=== PATIENT | female | born 1965 | race Caucasian/White ===

== ENCOUNTER 2019-03-27 09:24 | Observation (INO) | payer BC ==
--- OUTSIDE RECORDS SUMMARY | 2019-03-27 10:47 | XMS REPORT ---
:1965 Author Organization eClinicalWorks Care Team Providers Name Role Phone Taran Berg Provider Role Unavailable Allergies No Known Allergies Problems Problem Type Condition Code Onset Dates Condition Status Problem Tear of right rotator cuff, M75.101 Active unspecified tear extent Medications No Known Medications Results No Known Results Summary Purpose eClinicalWorks Submission
--- OUTSIDE RECORDS SUMMARY | 2019-03-27 10:47 | XMS REPORT ---
:1965 Author Organization eClinicalWorks Care Team Providers Name Role Phone Taran Berg Provider Role Unavailable Allergies, Adverse Reactions, Alerts Substance Reaction Event Type Ultram Info Not Available Drug Allergy Problems Problem Type Condition Code Onset Dates Condition Status Assessment Acute pain of right shoulder M25.511 Active Problem Tear of right rotator cuff, M75.101 Active unspecified tear extent Assessment Subacromial bursitis of right M75.51 Active shoulder joint Assessment Tear of right rotator cuff, M75.101 Active unspecified tear extent Medications No Known Medications Results Name Result Date Reference Range Unit Abnormality Flag MRI SHOULDER WO CONTRAST Summary Purpose eClinicalWorks Submission
--- OUTSIDE RECORDS SUMMARY | 2019-03-27 10:47 | XMS REPORT ---
[...] cuff, M75.101 Active unspecified tear extent Assessment Bicipital tendinitis of right M75.21 Active shoulder Assessment Subacromial bursitis of right M75.51 Active shoulder joint Assessment Tear of right rotator cuff, M75.101 Active unspecified tear extent Medications Medication Code System Code Instructions Start Date End Date Status Dosage [facility] [id number] 7.5 MG Orally Jun 14, Jul 22, Active 1 tablet Once a day 2017 2017 Results No Known Results Summary Purpose eClinicalWorks Submission
--- OUTSIDE RECORDS SUMMARY | 2019-03-27 10:48 | XMS REPORT ---
:1965 Author Organization eClinicalWorks Care Team Providers Name Role Phone Taran Berg Provider Role Unavailable Allergies, Adverse Reactions, Alerts Substance Reaction Event Type Ultram Info Not Available Drug Allergy Problems Problem Type Condition Code Onset Dates Condition Status Assessment Tear of right rotator cuff, M75.101 Active unspecified tear extent Problem Tear of right rotator cuff, M75.101 Active unspecified tear extent Assessment Acute pain of right shoulder M25.511 Active Assessment Subacromial bursitis of right M75.51 Active shoulder joint Assessment Bicipital tendinitis of right M75.21 Active shoulder Medications Medication Code System Code Instructions Start Date End Date Status Dosage [facility] [id number] 7.5 MG Orally Active 1 tablet Once a day Results No Known Results Summary Purpose eClinicalWorks Submission
--- OUTSIDE RECORDS SUMMARY | 2019-03-27 10:48 | XMS REPORT ---
[...] Instructions Start Date End Date Status Dosage [facility] [id number] 7.5 MG Orally Aug 03, Oct 02, Active 1 tablet Once a day 2017 2017 Results No Known Results Summary Purpose eClinicalWorks Submission
[2019-03-27 11:07] VITALS: BMI 27.4
--- NOTE | 2019-03-27 11:37 | P.SSS ---
Patient History Date of Service: 03/27/19 Reason for admission: L SIDE LATERAL CHEST WALL AND BACK PAIN History of Present Illness: TIMO IS 53 YEARS OLD LADY WITH NO MAJOR CARDIAC RISK FACTORS COMES WITH PAIN L LATERAL CHEST WALL, RADIATING TO L SIDE T8 SPINE REGION. SHE WOKE UP WITH PAIN. SHE HAS FEVER BLISTER R LIP ALSO. SHE HAS SOME FATIGUE. SHE HAS NO NAUSEA, GERD, DIAPHORSIS OR DYSPNEA. Allergies tramadol HCl [From [facility]] Allergy (Verified 02/21/16 06:44) Itching Hydrocodone-Acetaminophen Adverse Reaction (Uncoded 02/21/16 06:44) Nausea/Vomiting Home Medications: Atorvastatin Calcium [Lipitor] 10 mg PO DAILY 03/27/19 Cholecalciferol (Vitamin D3) [Vitamin D3] 1,000 unit PO DAILY 03/27/19 Glucosamine/Chondroiti/Hrb#270 [Cosamin Asu Capsule] 1 each PO DAILY 03/27/19 Multivit-Min/Iron Fum/Folic AC [Pfxdk-Ziuofsk-Gtrbyloq Tablet] 1 each PO DAILY 03/27/19 Ubidecarenone [Co Q-10] 100 mg PO DAILY 03/27/19 - Past Medical/Surgical History Has patient received pneumonia vaccine in the past: No Diabetic: No -: Coronary Artery spasms -: Hyperlipidemia -: 3 -: hysterectomy -: c-spine fusion 6,7 -: tondon repair -: tonsillectomy - Family History Father History Unknown: Yes Mother -: Lung disease, Diabetes, Other (see notes) Notes: pulmonary embolism - Social History Smoking Status: Never smoker Alcohol use: Yes CD- Drugs: No Caffeine use: No Place of Residence: Home Review of Systems 10-point ROS is otherwise unremarkable Physical Examination - Physical Exam General: Alert, In no apparent distress HEENT: Atraumatic, PERRLA, Mucous membr. moist/pink, EOMI, Sclerae nonicteric Neck: Supple, 2+ carotid pulse no bruit, No LAD, Without JVD or thyroid abnormality Respiratory: Clear to auscultation bilaterally, Normal air movement Cardiovascular: Regular rate/rhythm, Normal S1 S2 Gastrointestinal: Normal bowel sounds, No tenderness Musculoskeletal: No tenderness Integumentary: No rashes Neurological: Normal gait, Normal speech, Normal strength at 5/5 x4 extr, Normal tone, Normal affect Lymphatics: No axilla or inguinal lymphadenopathy - Diagnosis (Problem(s)) (1) Atypical chest pain Current Visit: Yes Status: Acute Plan: SHE HAS DERMATOMAL CHEST PAIN. I HAVE SEEN THIS IN PATIENTS TWO WEEKS BEFORE THEY GET SHINGLES BREAKOUT. I WILL COVER WITH GABAPENTIN AND VALTREX. SHE HAS FAMVIR AT HOME FOR HERPES LABIALIS. SHE IS VERY STABLE, HAS NORMAL EKG AND NORMAL ENZYMES. I WILL SEND HER HOME AFTER MEDS. IT WILL BE NICE IF DR. HICKMAN IS ABLE TO SEE HER SHE WAS SENT FROM [facility] TO THIS [facility]. - Disposition Disposition: ROUTINE DISCHARGE
--- NOTE | 2019-03-27 13:15 | RAD REPORT ---
EXAM DESCRIPTION: CT - Chest For Pe Angio - 03/27/2019 1:04 pm CLINICAL HISTORY: Chest pain. rule out PE COMPARISON: No comparisons TECHNIQUE: CT angiogram of the pulmonary arteries was performed with MIP. All CT scans are performed using dose optimization technique as appropriate and may include automated exposure control or mA/KV adjustment according to patient size. FINDINGS: No evidence of pulmonary thromboembolism. No acute aortic finding demonstrated. Mild interstitial pulmonary edema suspected. No significant pericardial or pleural fluid. No concerning bony finding. IMPRESSION: No evidence of pulmonary thromboembolism. Mild interstitial pulmonary edema.
[2019-03-27] MEDS: GABAPENTIN 100 MG CAP PO SCH ×2 (14:10→20:58)
[2019-03-27] MEDS: VALACYCLOVIR 500 MG TAB PO SCH ×2 (14:10→20:57)
--- NOTE | 2019-03-27 17:20 | CON ---
History Of Present Illness: Mrs. Brown is 53. She had chest pain. It was left side of her chest, back, and front, did not seem to radiate, and exactly a dermatome band that perhaps close enough to i t. There is no rash. The pain is not pleuritic. It is constant, although it seems to have gone sujit y. She has no previous history of cardiac disease. She had what was thought to be an DE, but had no rmal coronary arteries in 2012. We speculated it could have been due to coronary spasm. There is no history of vascular disease or diabetes or tobacco use. Medications: She takes atorvastatin, multivitamin, coenzyme Q10, vitamin D3, and glucosamine chondro itin. Allergies: SHE IS INTOLERANT OF TRAMADOL AND HYDROCODONE. Physical Examination: General: Alert, oriented, pleasant, 5 feet 3 pounds, 155 pounds. HEENT: Normal. Lungs: Clear. Cardiac: Within normal limits. Abdomen: Soft. Extremities: Normal. No cyanosis, clubbing, or edema. Distal pulses palpable. Studies: EKG voltage for LVH, otherwise normal. Impression: This is probably not an acute coronary syndrome. Troponins were less than 0.017 at [facility], so we will now proceed to do a stress test and echocardiogram tomorrow. If those are normal, she can be discharged home. Dr. Garnica has elected to give her valacyclovir thinking it may h ave been shingles. MEGAN/TONIL Voice ID: [id number] Report ID: [id number]
[2019-03-27] MEDS ORDERED: ATORVASTATIN 10 MG TAB PO SCH (21:00)
[2019-03-28 08:19] VITALS: TEMP 97.3
[2019-03-28] MEDS: GABAPENTIN 100 MG CAP PO SCH ×2 (08:26→17:02)
[2019-03-28] MEDS: VALACYCLOVIR 500 MG TAB PO SCH ×2 (08:26→17:02)
[2019-03-28] MEDS ORDERED: REGADENOSON 0.4 MG/5 ML SYR IV ONE (08:37)
[2019-03-28] MEDS ORDERED: VITAMIN D 1000 UNIT TAB PO SCH (09:00)
[2019-03-28] MEDS ORDERED: HOME MED 1 EA UNK (Ubidecarenone [Co Q-10] 100 MG) PO SCH (09:00)
[2019-03-28] MEDS ORDERED: HOME MED 1 EA UNK (Cholecalciferol (Vitamin D3) [Vitamin D3] 1,000 UNIT) PO SCH (09:00)
[2019-03-28 10:18] VITALS: O2SAT 95
[2019-03-28 12:41] VITALS: BP 130/61
--- NOTE | 2019-03-28 13:08 | ECHO ---
HEIGHT: 5 ft 3 in WEIGHT: 155 lb 2 oz DATE OF STUDY: 03/28/[address]: Calvin Cifuentes MD 2-DIMENSIONAL: YES M.MODE: YES DOPPLER: YES COLOR FLOW: YES TDS: NO PORTABLE: NO DEFINITY: NO BUBBLE STUDY: NO DIAGNOSIS: CHEST PAIN CARDIAC HISTORY: CATHERIZATION: YES SURGERY: NO PROSTHETIC VALVE: NO PACEMAKER: NO MEASUREMENTS (cm) DIASTOLIC (NORMALS) SYSTOLIC (NORMALS) IVSd 0.9 (0.6-1.2) LA Diam 3.5 (1.9-4.0) LVEF 72% LVIDd 3.7 (3.5-5.7) LVIDs 2.2 (2.0-3.5) %FS 41% LVPWd 1.0 (0.6-1.2) Ao Diam 2.4 (2.0-3.7) 2 DIMENSIONAL ASSESSMENT: RIGHT ATRIUM: NORMAL LEFT ATRIUM: NORMAL RIGHT VENTRICLE: NORMAL LEFT VENTRICLE: NORMAL TRICUSPID VALVE: NORMAL MITRAL VALVE: NORMAL PULMONIC VALVE: NORMAL AORTIC VALVE: NORMAL PERICARDIAL EFFUSION: NONE AORTIC ROOT: NORMAL LEFT VENTRICULAR WALL MOTION: NORMAL. DOPPLER/COLOR FLOW: NORMAL. COMMENTS: NORMAL 2D ECHOCARDIOGRAM WITH DOPPLER. TECHNOLOGIST: JORGITO JONES
--- NOTE | 2019-03-28 16:35 | TREADPHA ---
DX: CHEST PAIN Date of Study: 03/28/19 Ht: 5 3 Wt: 155 lb 2 oz Consulting Physician: MARYLOU MEDICATIONS: LIPITOR, NEURONTIN, VALTREX. HISTORY: 53 YEAR FEMALE, NON-SMOKER. HISTORY: HYPERLIPIDEMIA PHYSICIAL EXAMINATION: RESTING B.P.: 130/81 RESTING H.R.: 72 RESTING EKG: NORMAL PROTOCOL: LEXISCAN EXERCISE TIME: 3:30 B.P. AT PEAK STRESS: 135/76 IMPRESSION: LEXISCAN INJECTED FOLLOWED BY CARDIOLITE PER PROTOCOL, SEE NUCLEAR MEDICINE REPORT. NO SUPRAVENTRICULAR TACHYCARDIA, VENTRICULAR TACHYCARDIA, PREMATURE ATRIAL COMPLEXS, OR PREMATURE VENTRICULAR COMPLEXS. PATIENT REPORTED 0/10 CHEST PAIN. NON-DIAGNOSTIC ELECTROCARDIOGRAM WITH LEXISCAN STRESS.
--- NOTE | 2019-03-28 16:55 | RAD REPORT ---
EXAM DESCRIPTION: NM - Rest Stress Cardiac Imaging - 03/28/2019 4:40 pm CLINICAL HISTORY: Chest pain. COMPARISON: None. TECHNIQUE: The patient was administered approximately 10mCi of Tc 99m Sestamibi prior to resting SPE CT imaging of the heart. The patient was then administered approximately 30 mCi of Tc 99m Sestamibi f ollowing exercise or pharmacologic stress. Multiplanar SPECT images were reviewed. FINDINGS: There is uniformity of radiotracer uptake involving the entire left ventricular myocardiu m on rest and stress images. The left ventricular ejection fraction equals 69% IMPRESSION: Negative for a myocardial perfusion defect
== END 2019-03-28 19:00 | disposition home or self-care (01) ==
LOC: 2ND 10:45
PROVIDERS: ADMIT Internal Medicine; ATTEND Internal Medicine
DX: R07.89 Other chest pain (principal); J81.1 Chronic pulmonary edema; E78.5 Hyperlipidemia, unspecified; Z79.899 Other long term (current) drug therapy
CPT/HCPCS: 71275; 78452; 93017; 93306; A9500; G0378; J2785; Q9967

== ENCOUNTER 2019-08-18 06:25 | Day surgery (SDC) | payer BC ==
[2019-08-15 09:22] LABS: Absolute Lymphocytes (CBC) 2.3 K/uL (0.7-4.9); Basophils % 0.6 % (0-1.3); Hematocrit 37.2 % (36.0-45.0); Lymphocytes % 38.7 % (15.3-44.8); MPV 8.2 fL (7.6-11.3); RBC Red Blood Cell Count 3.92 M/uL (3.86-4.86)
[2019-08-15 09:24] LABS: Potassium 4.2 mmol/L (3.5-5.1); Protime INR 0.9
--- NOTE | 2019-08-15 09:40 | EKG ---
Test Date: 2019-08-15 Test Time: 08:41:26 Recycling Operator: EDMAR MEASUREMENT RESULTS: Intervals: Rate: 72 MA: 148 QRSD: 82 QT: 396 QTc: 433 [place]: P: 17 MA: 148 QRS: 53 T: 49 INTERPRETIVE STATEMENTS: Normal sinus rhythm Normal ECG Compared to ECG 01/29/2017 15:18:20 No significant changes Electronically Signed On 08-15-19 09:40:19 CDT by Calvin Cifuentes
--- NOTE | 2019-08-15 10:41 | RAD REPORT ---
EXAM DESCRIPTION: RAD - Chest Pa And Lat (2 Views) - 08/15/2019 8:48 am CLINICAL HISTORY: preop Chest pain. COMPARISON: Chest Single View dated 01/29/2017; CHEST PA AND LAT 2 VIEW dated 10/17/2015; CHEST SINGLE VIEW dated 03/11/2015; CHEST SINGLE VIEW dated 08/13/2014 FINDINGS: The lungs are clear. The heart is normal in size. No displaced fractures. Cervical spine hardware plate. IMPRESSION: No acute or concerning finding suspected.
--- NOTE | 2019-08-16 13:49 | PREOPHP ---
Date of Admission: 08/15/2019 Pt was seen in my office for new STM in plantar fascia left foot present months. Patient pain is dull, Mild in severity. Worse with activity relieved by rest Past Medical History: Arthritis and thyroid disease. Current Medications: Atorvastatin, coenzyme Q, Cosamin ASU 500 mg. Allergies: ULTRAM. Past Surgical History: ; hysterectomy; unilateral oophorectomy; repair of quadriceps tendon; cervical fusion; and plantar fibroma excision in 2016, left foot. Social History: Patient is a former smoker. Admits to occasional wine use. No IV drug use. Family History: High cholesterol in her mother and father, arthritis, diabetes , hypertension, thyroid disease in the mother. Physical Examination: Vital Signs: Weight 155 pounds, height 5 feet 3 inches. General Appearance: Healthy, well developed, well nourished, well oriented x3. Vascular: Evaluation reveals dorsalis pedis and posterior tibial pulses to be full bilaterally. Capillary refill time is 1 seconds. Temperature gradient is within normal limits. There are no varicosities or the signs of DVT noted bilaterally. Musculoskeletal: Subcutaneous soft tissue mass located on the plantar fascia of the left foot. There is swelling of the skin measuring 1.5 cm x 1 cm, just medial to the prior incision for previous growth. The growth at preop is now 1.5 cm x 1.5 cm medial to the prior incision with possibly new growths on the lateral aspect of the prior incision measuring approximately 5 mm x 5 mm and 6 mm x 7 mm. There are no skin changes seen. Lateral lesions may be just a scar tissue from the prior procedure. Skin: No rash, ulcer, tumor, or contracture in noted in the skin. Neurologic: Deep tendon reflexes of the patella and Achilles to be 5/5 bilaterally. Vibratory and sharp dull sensation within normal limits. Diagnoses: Benign soft tissue mass of the left arch, plantar fibroma. The recommended treatment is for incisional biopsy of these areas in a plantar fashion. Due to the new growth of these areas, biopsy is warranted. The patient as stated she will be nonweightbearing for approximately 2-3 weeks with use of crutches and pressure on her heel in a non-walking nature. Patient understands risks, benefits, alternatives of the above-mentioned procedure including, but not limited to the risk of pain, swelling, numbness, stiffness, infection, nonhealing of skin or soft tissue, and recurrence of the growths or new growths. Patient has been instructed on use of cold therapy machine, given written instructions. Lab work has been performed and is within normal limits. Medical H and P will be completed by Anesthesia. The patient is scheduled for surgery at [facility] on August 18, 2019. VINH Voice ID: [id number] MTDD
[2019-08-18] MEDS ORDERED: Ringers Lactate 1,000 ML IV ONE (06:47)
[2019-08-18] MEDS ORDERED: CEFAZOLIN/SWI 1gm 1 GM/10 ML SYR ONE (06:48)
[2019-08-18] MEDS ORDERED: PROPOFOL 200 MG/20 ML VIAL IV ONE ×2 (07:11→08:00)
[2019-08-18] MEDS ORDERED: MIDAZOLAM HCL 2 MG/2 ML INJ ONE (07:11)
[2019-08-18] MEDS ORDERED: LIDOCAINE 2% MPF 5 ML VIAL ONE (07:12)
[2019-08-18] MEDS ORDERED: FENTANYL CITR 100 MCG/2 ML ONE (07:12)
[2019-08-18] MEDS ORDERED: ONDANSETRON 4 MG/2 ML VIAL ONE (07:13)
[2019-08-18] MEDS ORDERED: LIDOCAINE 1% MPF 30 ML VIAL ONE (07:23)
[2019-08-18] MEDS ORDERED: dexAMETHasone 10 MG/ML VIAL ONE (07:58)
[2019-08-18] MEDS ORDERED: KETOROLAC 30 MG/ML INJ ONE (07:58)
[2019-08-18 09:36] VITALS: TEMP 97; O2SAT 96
[2019-08-18 10:12] VITALS: BP 128/72
--- NOTE | 2019-08-18 19:18 | DS ---
Date of Discharge: 08/18/2019 Date Of Surgery: 08/18/2019 Preoperative Diagnosis: Plantar fibroma, left foot. Postoperative Diagnosis: Plantar fibroma, left foot. Procedure: Excision of plantar fibroma, plantar aspect, left foot. Hospital Course: The patient tolerated the sedation and anesthesia well. The patient will be discha rged to home in satisfactory condition, nonweightbearing on the left foot utilizing crutches. The carmen henry has emergency phone number and postop instructions in the written form. The patient will be se en in my office for postoperative care in 1 week on 08/25/2019 at 9 o'clock. ANGELA/ERIC Voice ID: [id number] Report ID: [id number]
--- NOTE | 2019-08-18 19:18 | OP ---
Date of Procedure: 08/18/2019 Surgeon: Antony Ayala DPM Preoperative Diagnosis: Plantar fibroma, left foot. Postoperative Diagnosis: Plantar fibroma, left foot. Procedure: Excision of plantar fibroma. Soft tissue mass for biopsy. Anesthesia: Initially sedation, converted to general. Description Of Procedure: Patient was brought into the operating room, placed on operative table in supine position. Once adequate IV sedation was obtained, the patient was injected with a total of 10 cc of 0.5% Marcaine plain. The patient was prepped and draped in the usual sterile manner, and the left extremity was elevated and an Esmarch bandage was applied to exsanguinate the blood supply. Pne umatic ankle tourniquet was elevated to 250 mmHg and the Esmarch was removed. Attention was then dir ected to the plantar aspect of the left foot where a 6 cm curvilinear incision was made overlying the plantar fibroma extending onto a second area of question. The patient was still moving in with an a dditional 10 cc of Marcaine injected. The patient still had discomfort and was converted to general. The incision was deepened via sharp and blunt dissection, preserving a fat layer on the skin, but s eparating the fibromatous mass from the skin and subcutaneous fat. The plantar fibroma was easily se en in the plantar fascia. The dimensions were approximately 1.6 cm in diameter. The margins were is olated of good plantar fascia. There was some scarring from the previous excision just laterally to this area, but not connected. An incision was made in the plantar fascia in the normal area in the c entral band and extended medially and exiting the edge of the medial plantar fascia band, a cut was t hen made at the proximal aspect of the growth in the good plantar fascia and the fibromatous mass was then reflected distally and excised at its distal-most margin where good plantar fascia was seen. T he medial margin was into the fatty tissue. The lateral margin was isolated. The area of a second g rowth was looked at. It was found to be a scar tissue, but removed as there was muscle belly mediall y beneath this indicating no more plantar fascia or fibromatous mass in the second area just essentia l and lateral to the medial growth. There was flushed copious amounts of sterile saline. Neurologic structures were avoided. All bleeders were clamped and bovied. The subcutaneous tissue was reappro ximated utilizing 2-0 Vicryl suture. Skin was reapproximated utilizing 4-0 Prolene in a simple sutur ing. Excellent coaptation of the skin margins was obtained. They were dressed with Adaptic, dry maggie rile gauze, dry sterile Kerlix, and cold therapy pad and Arslan bandage. Pneumatic ankle tourniquet was deflated and capillary return was seen to be instantaneous to all digits. The patient was seen in m y office for postoperative care. The patient was discharged to recovery room in satisfactory conditi on. ANGELA/ERIC Voice ID: [id number] Report ID: [id number]
--- OUTSIDE RECORDS SUMMARY | 2019-09-17 15:11 | XMS REPORT ---
[...] Instructions Start Date End Date Status Dosage [facility] [id number] 7.5 MG Orally Active 1 tablet Once a day Results No Known Results Summary Purpose eClinicalWorks Submission
--- OUTSIDE RECORDS SUMMARY | 2019-09-17 15:11 | XMS REPORT ---
[...] Instructions Start Date End Date Status Dosage [facility] 34167125701 7.5 MG Orally Aug 03, Oct 02, Active 1 tablet Once a day 2017 2017 Results No Known Results Summary Purpose eClinicalWorks Submission
--- OUTSIDE RECORDS SUMMARY | 2019-09-17 15:11 | XMS REPORT ---
[...] Instructions Start Date End Date Status Dosage [facility] 22318071650 7.5 MG Orally Jun 14, Jul 22, Active 1 tablet Once a day 2017 2017 Results No Known Results Summary Purpose eClinicalWorks Submission
== END 2019-08-18 10:10 | disposition home or self-care (01) ==
LOC: OR 06:25
PROVIDERS: ATTEND Podiatrist
PROC: 0JBR0ZZ Excision of Left Foot Subcutaneous Tissue and Fascia, Open Approach (ICD-10-PCS; principal; 2019-08-18 07:30)
DX: D17.39 Benign lipomatous neoplasm of skin and subcutaneous tissue of other sites (principal); M19.90 Unspecified osteoarthritis, unspecified site; E07.9 Disorder of thyroid, unspecified; Z88.6 Allergy status to analgesic agent; Z87.891 Personal history of nicotine dependence; Z83.3 Family history of diabetes mellitus; Z82.49 Family history of ischemic heart disease and other diseases of the circulatory system
CPT/HCPCS: 93005; 85025; 80048; 36415; 85610; 88305; 85730; 71046; 28039; J2704 ×2; J2250; J3010; J1100; J0690; J7120; J2405

== ENCOUNTER 2022-02-07 17:19 | Observation (INO) | payer BC ==
--- OUTSIDE RECORDS SUMMARY | 2022-02-07 17:21 | XMS REPORT | Continuity of Care Document ---
:1965 Author Organization [facility] t Address [address] [place] [address] Care Team Providers Name Role Phone BOZENA LIU Attending Clinician Unavailable Byron Liu Attending Clinician Unavailable Chapo Garnica Admitting Clinician Unavailable Payers Payer Name Policy Type Policy Number Effective Date Expiration Date S ource Problems Condition Condition Condition Status Onset Resolution Last Treating Co mments Source Name Details Category Date Date Treatment Clinician Date Tear of Tear of Problem Active [facility] rot[facility] cuff, cuff, l unspecifie unspecifie Ou tpati d tear d tear ent extent extent Clinics Acute pain Acute pain Diagnosis Active [facility] of right of right [facility] - shoulder shoulder [facility] l Outpati ent Clinics Bicipital Bicipital Diagnosis Active [facility] tendinitis tendinitis Carolynn kes - of right of right Memori a shoulder shoulder l Outpati ent Clinics Subacromia Subacromia Diagnosis Active [facility] l bursitis l bursitis [facility]ynn kes - of right of right Memori a shoulder shoulder l joint joint Outpati ent Clinics Allergies, Adverse Reactions, Alerts Allergy Allergy Status Severity Reaction(s) Onset Inactive Treating Comm ents Source Name Type Date Date Clinician hydrocod DA Active [facility] 2020[facility]0 [facility] [place] [facility] U 2020[facility]0 [facility] [place] 00:[facility]: d 00 [facility] hydrocod DA Active U UPSET 2020-0 [facility] STOMACH 6-18 [place] 00:00: d 00 [facility] tramadol DA Active U "CRAZY" [facility] 6[facility]18 [place] 00:00: d 00 [facility] Ultram Adverse Active Info Not [facility] Reaction Available [facility] Medications Ordered Filled Start Stop Current Ordering Indication Dosage Frequency Signature Comments Components Source Medication Medication Date Date Medication? Clinician (SIG) Name Name Yamilex Kaminski 2018- No Taran [address] [facility] 08[facility]03 [facility] 00:[facility]: 00:00 [facility] 00 :00 [facility] Procedures This patient has no known procedures. Encounters Start End Encounter Admission Attending Care Care Encounter Source Date/Time Date/Time Type Type Clinicians Facility Department ID 2021-07-24 2021-07-24 Outpatient INDER LIU [facility] [id number] [facility] 08:05:00 13:41:00 AKHIL 2020-04-30 2020-04-30 Outpatient ELBERT Liu RADI [id number] 04-28 [facility] 13:00:00 13:00:00 Akhil [id number] [facility] [place], operated by [facility] 2018-10-25 2018-10-25 [place]patient [facility] [place] [id number] 09:00:00 09:00:00 [facility] 2018-08-04 2018-08-04 Outpatient [facility] [id number] [address] 08:42:00 08:42:00 t [facility] 2018-08-03 2018-08-03 [facility] [id number] [address] 14:30:00 14:30:00 t [facility] 2018-06-22 2018-06-22 [facility] [id number] [address] 13:30:00 13:30:00 t [facility] 2018-06-21 2018-06-21 [facility] [id number] [address] 08:35:00 08:35:00 [facility] 2018-06-16 2018-06-16 Outpatient Trino Strickland [id number] [address] 09:30:00 09:30:00 t [facility] 2018-06-15 2018-06-15 Outpatient Trino Strickland [id number] [address] 09:30:00 09:30:00 t [facility] Results Test Description Test Time Test Comments Results Result [facility] Comments CYTOLOGY 2020-05-03 09:33:00 --------RUN DATE: 05/03/20 [facility] PAGE 1 RUN TIME: 932 Specimen Inquiry RUN USER: INTERFACE --------PATIENT: TIMO BENZ LOC: [facility] U #: [id number] AGE/SX: 54/F ROOM: RE04/30/20REG DR: Akhil Liu III : 61 BED: DIS: STATUS: NAIDA MCLAUGHLIN TLOC: -------- SPEC #: [id number] RECD: 04/30/20 STATUS: JOSE HAQUE #: [id number] ROSHNI: 04/30/[address]: Akhil Liu III, MD ENTERED: 04/30/20 SP TYPE: CYTOLOGY OTHR DR: Jose Manuel Garnica MD ORDERED: CB, CYTO FWB SM W, FNA, FNA AD COPIES TO: Jose Manuel Garnica MD [address] [place], [place] [address] [place] [address] [address] [place] [address] [email or web address] HISTOLOGY: TISSUE ID BLK PCS JOSE LEV PROCEDURE DISPOSITION ____ ___ ___ ___ THYROID GLAND A 1 2 PROCEDURES: CB (04/30/20) CYTO FWB SM W (05/01/20-943) FNA (04/30/20) FNA AD (04/30/20) TISSUES: A. THYROID GLAND, NOS - LEFT THYROID INFERIOR FNA CONSULTATION Dr. Velasco has reviewed this case and agrees with the diagnosis. CPT CODES CPT CODE(S): 28057 , 30963 , 71754 , 81308 , , , FINAL DIAGNOSIS Thyroid, inferior left lobe nodule, fine needle aspiration: BENIGN FOLLICULAR NODULE CONTINUED ON NEXT PAGE --------RUN DATE: 05/03/20 [facility] - LAB PAGE 2 RUN TIME: 932 Specimen Inquiry RUN USER: INTERFACE --------SPEC #: [id number] PATIENT: TMIO BENZ #[id number] (Continued) GROSS DESCRIPTION Left thyroid inferior nodule FNA. Five passes are performed. Received is <1 mL of bloody fluid and 10 smears. The smears are sent for Pap and Diff-Quik stains. One cell block is prepared and submitted for H E stain. /ms Grossing performed at [facility], [address], [address], [place] [address]. Weight Shifter: Fidel Farrell M.D. MICROSCOPIC DESCRIPTION Left thyroid inferior nodule FNA. The smear preparations and cell block demonstrate abundant blood with scattered follicular cells arranged in sheets and macrofollicles. Scattered microfollicles are also present, however there is significant colloid in the background. The follicular cells demonstrate no significant cytologic abnormalities. Features of papillary thyroid carcinoma are not identified. /zayra SPECIMEN ADEQUACY Adequacy check performed by Dr. Puckett. Signed SIGNATURE ON FILE Angie Hines 05/03/20 0933 -------- END OF REPORT - USG NDL 2020-04-30 Name: DEMARTIMO PLACEMENT 16:21:00 (Bxg/Asp) [facility] : 1965 Age/S: 54 / F [id number] Unit #: [id number] Loc: [place] [address] Phys: Akhil Liu III, MD Acct: [id number] Dis Date: Status: REG CLI PHONE #: [phone] Exam Date: 04/30/2020 7715 FAX #: Reason: THYROID NODULE EXAMS: CPT: [id number] USG NDL PLACEMENT (Bxg/Asp) 01584 EXAMINATION: IMAGE GUIDED PERCUTANEOUS THYROID FINE NEEDLE ASPIRATION. LOCATION: S17. HISTORY: Left thyroid nodule, request is made for biopsy. COMPARISON: None. SEDATION: The patient did not require conscious sedation for the procedure. TECHNIQUE: The risks, benefits and alternatives were discussed and informed consent was obtained. Prior to beginning the procedure, [place] Protocol was performed to confirm the patient's identity and the planned procedure. Maximum sterile barriers including cap, mask, hand hygiene, sterile gloves, sterile gown, large sterile drape and cutaneous antisepsis were used. The neck was prepped and draped in the usual sterile fashion. The overlying skin was anesthetized with 1% lidocaine. Using ultrasound guidance, five passes with a 25-gauge needle were performed into the nodule in the left thyroid lobe. The patient tolerated the procedure well. Pathology was present. ESTIMATED BLOOD LOSS: Minimal. COMPLICATIONS: None. DISCHARGED TO: Outpatient recovery then home. FINDINGS: Ultrasound images demonstrate complex nodule in the inferior left thyroid lobe measuring 2.7 x 2.0 x 2.2 cm. Post biopsy images demonstrate no significant hematoma. IMPRESSION: Technically successful ultrasound-guided fine needle aspiration of a thyroid nodule. PAGE 1 Signed Report (CONTINUED) Name: TIMO BENZ : 1965 Age/S: 54 / F [address] Unit #: [id number] Loc: [place] [address] Phys: Akhil Liu III, MD Acct: [id number] Dis Date: Status: REG CLI PHONE #: [phone] Exam Date: 04/30/2020 1335 FAX #: Reason: THYROID NODULE EXAMS: CPT: [id number] USG NDL PLACEMENT (Bxg/Asp) 52450 <Continued> at 1621 Reported and signed by: Seth Bryant M.D. CC: Jose Manuel Ganrica MD; kAhil Liu III, MD Technologist: Susan Treadwell, RT(R),RDMS(AB) Trnscb Date/Time: 04/30/2020 (162) [id number] PAGE 2 Signed Report Name: TIMO BENZ : 1965 Age/S: 54 / F [id number] Unit #: [id number] Loc: [place] [address] Phys: Akhil Liu III, MD Acct: [id number] Dis Date: Status: REG CLI PHONE #: [phone] Exam Date: 04/30/2020 1333 FAX #: Reason: THYROID NODULE EXAMS: CPT: [id number] USG NDL PLACEMENT (Bxg/Asp) 52867 <Continued> Orig Print D/T: S: 04/30/2020 (1624) Probe: PAGE 3 Signed Report
[2022-02-07 18:01] LABS: Absolute Lymphocytes (CBC) 1.8 K/uL (0.7-4.9); Hematocrit 42.3 % (36.0-45.0); Lymphocytes % 22.3 % (15.3-44.8); MPV 8.1 fL (7.6-11.3); RBC Red Blood Cell Count 4.49 M/uL (3.86-4.86)
[2022-02-07 18:22] LABS: Potassium 3.2 mmol/L (3.5-5.1)
[2022-02-07 18:27] LABS: Troponin High Sensitivity 4.7 pg/mL (<58.9)
[2022-02-07] MEDS ORDERED: LORazepam 2 MG/ML VIAL ONE (18:27)
--- NOTE | 2022-02-07 19:01 | ER ---
Nurse's Notes [facility] Name: Angélica Brown Age: 56 yrs Sex: Female : 1965 Arrival Date: 02/07/2022 Time: 17:19 Bed 5 Private MD: Diagnosis: Chest pain, unspecified Presentation: 02/07 17:42 Chief complaint: Patient states: "around 1600 I got clammy, nauseated and began having ab2 chest pain. I took an Brittney-Elmira thinking it was indigestion with no relief.". Coronavirus screen: Vaccine status: Patient reports receiving the 2nd dose of the covid vaccine. Client denies travel out of the [place] in the last 14 days. At this time, the client does not indicate any symptoms associated with coronavirus-19. Ebola Screen: Patient negative for fever greater than or equal to 101.5 degrees Fahrenheit, and additional compatible Ebola Virus Disease symptoms Patient denies exposure to infectious person. Patient denies travel to an Ebola-affected area in the 21 days before illness onset. No symptoms or risks identified at this time. Initial Sepsis Screen: Does the patient meet any 2 criteria? No. Patient's initial sepsis screen is negative. Does the patient have a suspected source of infection? No. Patient's initial sepsis screen is negative. Risk Assessment: Do you want to hurt yourself or someone else? Patient reports no desire to harm self or others. Onset of symptoms is unknown. 17:42 Method Of Arrival: Ambulatory ab2 17:42 Acuity: KARLA 3 ab2 Triage Assessment: 17:43 General: Appears in no apparent distress. uncomfortable, Behavior is calm, cooperative, ab2 appropriate for age. Pain: Complains of pain in chest. Neuro: Level of Consciousness is awake, alert, obeys commands, Oriented to person, place, time, situation, Appropriate for age [employer] are equal bilaterally Moves all extremities. Gait is steady, Speech is normal. Cardiovascular: Reports chest pain. Respiratory: Airway is patent Respiratory effort is even, unlabored, Respiratory pattern is regular, symmetrical. Historical: - Allergies: 17:43 Tramadol HCl; ab2 - PMHx: 17:43 heart attack; ab2 - Immunization history:: Adult Immunizations up to date. - Social history:: Smoking status: Patient denies any tobacco usage or history of. Screenin:54 Abuse screen: Denies threats or abuse. Denies injuries from another. Nutritional jl7 screening: No deficits noted. Tuberculosis screening: No symptoms or risk factors identified. Fall Risk IV access (20 points). Total Liz[place] Fall Scale indicates No Risk (0-24 pts). Assessment: 17:54 General: Appears in no apparent distress. uncomfortable, Behavior is calm, cooperative, jl7 appropriate for age. Pain: Complains of pain in left subscapular area Pain does not radiate. Pain currently is 0 out of 10 on a pain scale. at worst was 5 out of 10 on a pain scale. Quality of pain is described as sharp, Pain began 2 hours ago. Is intermittent. Neuro: Level of Consciousness is awake, alert, obeys commands, Oriented to person, place, time, situation. Cardiovascular: Patient's skin is warm and dry. Respiratory: Airway is patent Respiratory effort is even, unlabored, Respiratory pattern is regular, symmetrical. Derm: Skin is pink, warm \\T\\ dry. 18:35 Reassessment: Pt denies pain at this time, refuses morphine and Zofran, pt reports jl7 feeling anxious, ERP notified, see MAR for orders, pt medicated as ordered. Pt reports taking Brittney Elmira NEWBORN HEARING SCREENER which has 500 mg aspirin, aspirin refused. Vital Signs: 17:42 BP 172 / 85; Pulse 106; Resp 18; Temp 98.7(TE); Pulse Ox 99% on R/A; Weight 72.57 kg; ab2 Height 5 ft. 3 in. (160.02 cm); Pain 4/10; 17:54 BP 156 / 68; Pulse 102; Resp 15; Pulse Ox 97% ; jl7 18:45 BP 146 / 75; Pulse 103; Resp 15; Pulse Ox 97% ; Pain 0/10; jl7 20:00 BP 146 / 88; Pulse 111; Resp 18 S; Pulse Ox 97% on R/A; as6 22:13 BP 152 / 76; Pulse 95; Resp 19 S; Pulse Ox 96% on R/A; as6 17:42 Body Mass Index 28.34 (72.57 kg, 160.02 cm) ab2 ED Course: 17:19 Patient arrived in ED. as 17:35 Kristen Nicholas FNP-C is PHCP. kb 17:35 Delfin Ryao MD is Attending Physician. kb 17:43 Triage completed. ab2 17:44 Arm band placed on right wrist. ab2 17:44 EKG done, by ED staff, reviewed by Delfin Rayo MD. dh3 17:53 Latasha Martinez, RN is Primary Nurse. jl7 17:54 Patient has correct armband on for positive identification. residential monitor on. Pulse jl7 ox on. NIBP on. Warm blanket given. 17:54 Initial lab(s) drawn, by me, sent to lab. Inserted saline lock: 20 gauge in right jl7 antecubital area, using aseptic technique. Blood collected. Patient maintains SpO2 saturation greater than 95% on room air. 18:59 XRAY Chest (1 view) In Process Unspecified. EDMS 19:00 Jose Manuel Garnica MD is Hospitalizing Provider. kb 02/08 03:44 No provider procedures requiring assistance completed. Patient admitted, IV remains in as6 place. Administered Medications: 02/07 18:21 Not Given (Patient Refused): morphine 4 mg IVP once; RASS on ADMIN: Combtv4, Very kb Agttd3, Agttd2, Rstlss1, AlertClm0, Drwsy-1, Lt Sdtn-2, Mod Sdtn-3, Dp Sdtn-4, UnArsble-5 18:30 Drug: Ativan (LORazepam) 0.5 mg Route: IVP; Site: right antecubital; jl7 18:50 Follow up: Response: No adverse reaction; Anxiety unchanged jl7 18:36 Not Given (pt took PTAa): Aspirin Chewable Tablet 324 mg PO once; 81 mg tablets x 4 jl7 18:36 Not Given (Patient Refused): Zofran (Ondansetron) 4 mg IVP once; over 2 minutes jl7 18:51 Drug: Ativan (LORazepam) 0.5 mg Route: IVP; Site: right antecubital; jl7 02/08 03:45 Follow up: Response: No adverse reaction as02/07 21:48 Drug: Zofran (Ondansetron) 4 mg Route: IVP; Site: right antecubital; as6 02/08 03:45 Follow up: Response: No adverse reaction as02/07 23:42 Drug: Pepcid (famotidine) 40 mg Route: PO; as6 02/08 03:45 Follow up: Response: No adverse reaction as6 Outcome: 02/07 19:00 Decision to Hospitalize by Provider. kb 02/08 03:44 Admitted to Med/surg accompanied by nurse, via wheelchair, room 210, with chart, Report as6 called to Sherita BUCKNER Condition: stable Instructed on the need for admit. 04:19 Patient left the ED. as6 Signatures: Dispatcher [employer] EDMS Kristen Nicholas, DATA ENTRY COORDINATOR-C DATA ENTRY COORDINATOR-Francoise Colón Jahala, RN RN jl7 Stacey Armas 3 Riky Corcoran, RN RN as6 Fernando Smith
--- NOTE | 2022-02-07 19:01 | EDPHYS ---
Physician Documentation [facility] Name: Angélica Brown Age: 56 yrs Sex: Female : 1965 Arrival Date: 02/07/2022 Time: 17:19 Bed 5 Private MD: ED Physician Delfin Rayo HPI: 02/07 17:54 This 56 yrs old Female presents to ER via Ambulatory with complaints of Chest Pain. kb 17:54 The patient or guardian reports chest pain that is located primarily in the anterior kb chest wall, left. Onset: at 16:00. The pain radiates to the left arm. Associated signs and symptoms: Pertinent positives: nausea. The chest pain is described as a pressure. Duration: The patient or guardian reports a single episode, that is still ongoing. Modifying factors: The symptoms are alleviated by nothing. the symptoms are aggravated by nothing. Severity of pain: At its worst the pain was moderate in the emergency department the pain is unchanged. The patient has not experienced similar symptoms in the past. The patient has not recently seen a physician. Historical: - Allergies: 17:43 Tramadol HCl; ab2 - PMHx: 17:43 heart attack; ab2 - Immunization history:: Adult Immunizations up to date. - Social history:: Smoking status: Patient denies any tobacco usage or history of. ROS: 17:53 Constitutional: Negative for fever, chills, and weight loss. kb 17:53 Cardiovascular: Positive for chest pain, Negative for edema, orthopnea, palpitations, paroxysmal nocturnal dyspnea. 17:53 Abdomen/GI: Positive for nausea. 17:53 All other systems are negative. Exam: 17:54 Constitutional: This is a well developed, well nourished patient who is awake, alert, kb and in no acute distress. Head/Face: Normocephalic, atraumatic. ENT: Moist Mucous membranes Cardiovascular: Regular rate and rhythm with a normal S1 and S2. No gallops, murmurs, or rubs. No pulse deficits. Respiratory: Respirations even and unlabored. No increased work of breathing. Talking in full sentences Skin: Warm, dry with normal turgor. Normal color. MS/ Extremity: Pulses equal, no cyanosis. Neurovascular intact. Full, normal range of motion. Neuro: Awake and alert, GCS 15, oriented to person, place, time, and situation. Moves all extremities. Normal gait. Psych: Awake, alert, with orientation to person, place and time. Behavior, mood, and affect are within normal limits. 17:54 ECG was reviewed by the Attending Physician. kb Vital Signs: 17:42 BP 172 / 85; Pulse 106; Resp 18; Temp 98.7(TE); Pulse Ox 99% on R/A; Weight 72.57 kg; ab2 Height 5 ft. 3 in. (160.02 cm); Pain 4/10; 17:54 BP 156 / 68; Pulse 102; Resp 15; Pulse Ox 97% ; jl7 18:45 BP 146 / 75; Pulse 103; Resp 15; Pulse Ox 97% ; Pain 0/10; jl7 20:00 BP 146 / 88; Pulse 111; Resp 18 S; Pulse Ox 97% on R/A; as6 22:13 BP 152 / 76; Pulse 95; Resp 19 S; Pulse Ox 96% on R/A; as6 17:42 Body Mass Index 28.34 (72.57 kg, 160.02 cm) ab2 MDM: 17:35 Patient medically screened. kb 17:53 Data reviewed: vital signs, nurses notes. Data interpreted: Pulse oximetry: on room air kb is 99 %. Interpretation: normal. 18:58 HEART Score: History: Highly Suspicious (2), ECG: Normal (0), Age: > 45 and < 65 years kb (1), Risk Factors: No Risk Factors Known (0), Troponin: < or = 1 x Normal Limit (0), Total Score = 3. Counseling: I had a detailed discussion with the patient and/or guardian regarding: the historical points, exam findings, and any diagnostic results supporting the discharge/admit diagnosis, lab results, radiology results, the need for further work-up and treatment in the hospital. Physician consultation: Jose Manuel Garnica MD was contacted at 18:59, regarding admission, to the telemetry unit. patient's condition, and will see patient in inpatient room, would like further tests performed, PE study if d-dimer elevated. 02/07 17:35 Order name: Basic Metabolic Panel; Complete Time: 18:29 kb 02/07 17:35 Order name: CBC with Diff; Complete Time: 18:25 kb 02/07 17:35 Order name: Troponin HS; Complete Time: 18:29 kb 02/07 17:52 Order name: BNP; Complete Time: 18:35 kb 02/07 18:57 Order name: D-Dimer; Complete Time: 19:35 kb 02/07 21:38 Order name: COVID-19/FLU A+B (Document "Date of Onset" if Symptomatic) as6 02/07 17:35 Order name: XRAY Chest (1 view) kb 02/07 22:34 Order name: COVID-19/FLU A+B EDMS 02/08 01:13 Order name: Troponin High Sensitivity EDMS 02/07 17:35 Order name: EKG; Complete Time: 17:36 kb 02/07 17:35 Order name: Cardiac monitoring; Complete Time: 17:46 kb 02/07 17:35 Order name: EKG - Nurse/Tech; Complete Time: 17:46 kb 02/07 17:35 Order name: IV Saline Lock; Complete Time: 17:53 kb 02/07 17:35 Order name: Labs collected and sent; Complete Time: 17:54 kb 02/07 17:35 Order name: O2 Per Protocol; Complete Time: 17:54 kb 02/07 17:35 Order name: O2 Sat Monitoring; Complete Time: 17:54 kb EC:54 Rate is 104 beats/min. Rhythm is regular. QRS [place] is Normal. MT interval is normal at kb 134 msec. QRS interval is normal at 76 msec. QT interval is normal at 340 msec. Administered Medications: 18:21 Not Given (Patient Refused): morphine 4 mg IVP once; RASS on ADMIN: Combtv4, Very kb Agttd3, Agttd2, Rstlss1, AlertClm0, Drwsy-1, Lt Sdtn-2, Mod Sdtn-3, Dp Sdtn-4, UnArsble-5 18:30 Drug: Ativan (LORazepam) 0.5 mg Route: IVP; Site: right antecubital; jl7 18:50 Follow up: Response: No adverse reaction; Anxiety unchanged jl7 18:36 Not Given (pt took PTAa): Aspirin Chewable Tablet 324 mg PO once; 81 mg tablets x 4 7 18:36 Not Given (Patient Refused): Zofran (Ondansetron) 4 mg IVP once; over 2 minutes jl7 18:51 Drug: Ativan (LORazepam) 0.5 mg Route: IVP; Site: right antecubital; jl7 02/08 03:45 Follow up: Response: No adverse reaction as02/07 21:48 Drug: Zofran (Ondansetron) 4 mg Route: IVP; Site: right antecubital; as6 02/08 03:45 Follow up: Response: No adverse reaction 02/07 23:42 Drug: Pepcid (famotidine) 40 mg Route: PO; 02/08 03:45 Follow up: Response: No adverse reaction as Disposition: 09:03 Co-signature as Attending Physician, Delfin Rayo MD. rn Disposition Summary: 02/07/22 19:00 Hospitalization Ordered Hospitalization Status: Observation kb Provider: Jose Manuel Garnica Location: Telemetry/MedSurg (observation) kb Condition: Stable kb Problem: new kb Symptoms: are unchanged kb Bed/Room Type: Standard Room Assignment: 210(02/08/22 03:25) cg Diagnosis - Chest pain, unspecified kb Forms: - Medication Reconciliation Form kb - SBAR form kb Signatures: Dispatcher [employer] EDKristen El, SUPERVISOR INSPECTION DEPARTMENT-C SUPERVISOR INSPECTION DEPARTMENT-Ckb Delfin Rayo MD MD rn Garcia, Cindy RN RN Latasha Shah RN RN jl7 Riky Corcoran RN RN as6 Fernando Smith2 Corrections: (The following items were deleted from the chart) 03:25 02/07 19:00 kb cg
[2022-02-07] MEDS ORDERED: ONDANSETRON 4 MG/2 ML VIAL ONE (21:44)
[2022-02-07 22:33] LABS: SARS-COV-2 RT PCR NEGATIVE (NEGATIVE)
[2022-02-07] MEDS ORDERED: FAMOTIDINE 20 MG TAB ONE (23:38)
[2022-02-08 03:30] VITALS: BMI 28.3
[2022-02-08 05:37] LABS: Absolute Lymphocytes (CBC) 1.3 K/uL (0.7-4.9); Hematocrit 39.5 % (36.0-45.0); MPV 8.2 fL (7.6-11.3); RBC Red Blood Cell Count 4.17 M/uL (3.86-4.86)
[2022-02-08 05:55] LABS: Potassium 3.5 mmol/L (3.5-5.1); Troponin High Sensitivity 5.4 pg/mL (<58.9)
[2022-02-08] MEDS ORDERED: INFLUENZA VACCINE (for 6+ mo) 0.5 ML DOSE IMVAC ONE (08:00)
--- NOTE | 2022-02-08 08:47 | P.SSS ---
Patient History Date of Service: 02/08/22 Reason for admission: CHEST PAIN History of Present Illness: TIMO HAS HAD CORONARY SPASM INDUCED CHEST PAIN BEFORE. SHE WAS ON A CALCIUM CHANDNI BEFORE AND DID WELL. SHE HAS BEEN OF FOR A FEW MONTHS AND COMES WITH PAIN IN CHEST, RADIATES TO L ARM AND HAD NAUSEA. D DIMER IS NEGATIVE. TROP ENZYMES ARE NORMAL AND EKG IS NORMAL. SHE HAD NORMAL ANGIOGRAM RECENTLY. Allergies hydrocodone Allergy (Verified 02/08/22 04:41) Nausea/Vomiting tramadol HCl [From Ultram] Allergy (Verified 02/08/22 04:42) gives "bad feeling" Home Medications: Atorvastatin Calcium [Lipitor] 10 mg PO DAILY 02/08/22 Magnesium Oxide [Magnesium] 400 mg PO DAILY 02/08/22 Multivitamin [One-Daily Multi-Vitamin] 1 tab PO DAILY 02/08/22 Ottertail-3 Fatty Acids [Ottertail-3] 500 mg PO DAILY 02/08/22 Thyroid Tab [[place] Thyroid*] 15 mg PO DAILY 02/08/22 Ubidecarenone [Co Q-10] 100 mg PO DAILY 02/08/22 - Past Medical/Surgical History Diabetic: No -: Coronary Artery spasms -: Hyperlipidemia -: 3 -: hysterectomy -: c-spine fusion 6,7 -: tondon repair -: tonsillectomy - Family History Mother -: Lung disease, Diabetes, Other (see notes) Notes: pulmonary embolism - Social History Smoking Status: Never smoker Alcohol use: Yes CD- Drugs: No Caffeine use: No Place of Residence: Home Review of Systems 10-point ROS is otherwise unremarkable Physical Examination - Vital Signs Temperature: 97.2 F Blood Pressure: 123/60 Pulse: 86 Respirations: 16 Pulse Ox (%): 98 - Physical Exam General: Alert, In no apparent distress HEENT: Atraumatic, PERRLA, Mucous membr. moist/pink, EOMI, Sclerae nonicteric Neck: Supple, 2+ carotid pulse no bruit, No LAD, Without JVD or thyroid abnormality Respiratory: Clear to auscultation bilaterally, Normal air movement Cardiovascular: Regular rate/rhythm, Normal S1 S2 Gastrointestinal: Normal bowel sounds, No tenderness Musculoskeletal: No tenderness Integumentary: No rashes Neurological: Normal gait, Normal speech, Normal strength at 5/5 x4 extr, Normal tone, Normal affect Lymphatics: No axilla or inguinal lymphadenopathy - Studies Laboratory Data (last 24 hrs) 02/07/22 17:48: WBC 8.0, Hgb 14.3, Hct 42.3, Plt Count 267 02/07/22 17:48: Sodium 140, Potassium 3.2 L, BUN 18, Creatinine 0.77, Glucose 109 H - Diagnosis (Problem(s)) (1) Prinzmetal's angina Current Visit: Yes Status: Acute Plan: START DILTIAZEM DAILY TO REDUCE SPASMS. ASPIRIN 81 MG DAILY. CARDIOLOGY CONSULTED SHE CAN GO HOME AND FU. - Disposition Disposition: ROUTINE DISCHARGE
[2022-02-08] MEDS ORDERED: DILTIAZEM HCL 120 MG SR CAP PO SCH (09:00)
[2022-02-08] MEDS ORDERED: MAGNESIUM OXIDE 400 MG TAB PO SCH (09:00)
[2022-02-08] MEDS ORDERED: HOME MED 1 EA UNK (Magnesium Oxide [Magnesium] 400 MG Capsule) PO SCH (09:00)
[2022-02-08] MEDS ORDERED: ATORVASTATIN 10 MG TAB PO SCH (09:00)
[2022-02-08] MEDS ORDERED: MULTIVITAMIN PO SCH (09:00)
[2022-02-08] MEDS ORDERED: UBIDECARENONE 100 MG PO SCH (09:00)
[2022-02-08] MEDS ORDERED: HOME MED 1 EA UNK (Omega-3 Fatty Acids [Omega-3] 1,000 MG Capsule) PO SCH (09:00)
[2022-02-08] MEDS ORDERED: ASPIRIN EC 81 MG TAB PO SCH (09:00)
--- NOTE | 2022-02-08 09:00 | RAD REPORT ---
EXAM DESCRIPTION: RAD - Chest Single View - 02/07/2022 6:57 pm CLINICAL HISTORY: CHEST PAIN COMPARISON: Two view chest 08/15/2019 TECHNIQUE: AP portable chest image was obtained 02/07/2022 6:57 pm . FINDINGS: Lungs are clear. Heart and vasculature are normal. No measurable pleural effusion and no p neumothorax. No acute bony abnormality seen. No acute aortic findings suspected. The final report was delayed due to PACs and/or Fluency technical problems that existed at the time of the study or during expected/usual dictation time period. IMPRESSION: No acute cardiopulmonary process.
[2022-02-08 10:06] VITALS: O2SAT 98
[2022-02-08 16:17] VITALS: BP 120/64; TEMP 97.8
--- NOTE | 2022-02-08 16:28 | CON ---
Date of Consultation: 02/08/2022 Reason For Consultation: Chest pain. History Of Present Illness: A middle aged female, history of coronary artery spasm as reported per h istory, comes in with chest pain that started initially with nausea and indigestion symptoms and she had chest pain under the left breast, went up to the shoulder, which made her anxious, so she present ed to the emergency room. She says that her chest pain completely resolved and the patient is asympt omatic. Denies having any exertional chest pain. Past Medical History: Dyslipidemia. Medications: Refer to medical reconciliation sheet for detailed list. Allergies: HYDROCODONE AND TRAMADOL. Family History: No premature coronary artery disease or cancer. Social History: She does not smoke or drink. Does not use any drugs. Review of Systems: All systems reviewed and they were negative except for what mentioned in the HPI. Physical Examination: Vital Signs: Reviewed. Head and Neck: Pupils are equal, reactive to light. Intact eye movements. No JVD. No cervical lym phadenopathy. Neck is supple. Thyroid is not enlarged. Lungs: Clear to auscultation bilaterally. No rhonchi, rales, or crackles. No accessory muscle use. Heart: Regular rate and rhythm. No extra sounds. Abdomen: Soft, nontender. Bowel sounds positive. No organomegaly. No masses or hernia. No rigidi ty or rebound. Extremities: No edema, clubbing, or cyanosis. Intact pulses. Skin: No rash noted. Neurologic: Alert, awake, oriented x3. No acute focal deficits appreciated. Investigations: Troponins are negative. Assessment And Recommendations: Chest pain with negative troponins and she has been chest pain free. From Cardiology standpoint, I agree with discharge and I will have the patient follow up at the off ice and we will plan for exercise stress test as well as an echo and to be sent home on a baby aspiri n and metoprolol. Thank you for the consult. /ERIC Voice ID: [id number] Report ID: [id number]
[2022-02-09] MEDS ORDERED: THYROID 30 MG TAB PO SCH (06:30)
[2022-02-09] MEDS ORDERED: MULTIVITAMIN TAB PO SCH (09:00)
--- NOTE | 2022-02-10 11:19 | EKG ---
Test Date: 2022-02-07 Test Time: 17:40:01 [facility] MEASUREMENT RESULTS: Intervals: Rate: 104 DE: 134 QRSD: 76 QT: 340 QTc: 447 [place]: P: 66 DE: 134 QRS: 11 T: 65 INTERPRETIVE STATEMENTS: Sinus tachycardia Otherwise normal ECG Compared to ECG 08/15/2019 08:41:26 Sinus rhythm no longer present Electronically Signed On 02-10-22 11:13:21 CDT by Marty Hernandez
== END 2022-02-08 16:21 | disposition home or self-care (01) ==
LOC: ER 17:19 → ERHOLD 19:39 → 2ND 02-08 03:50
PROVIDERS: ADMIT Internal Medicine; ATTEND Internal Medicine
DX: I20.1 Angina pectoris with documented spasm (principal); R11.0 Nausea; E78.5 Hyperlipidemia, unspecified; Z79.899 Other long term (current) drug therapy; Z88.6 Allergy status to analgesic agent; Z90.710 Acquired absence of both cervix and uterus; Z20.822 Contact with and (suspected) exposure to COVID-19; Z83.3 Family history of diabetes mellitus; Z83.6 Family history of other diseases of the respiratory system
CPT/HCPCS: 93005; 85025 ×2; 80048 ×2; 36415; 85379; 84484 ×3; 83880; 0240U; 71045; 96375; 96374; 99285; J2405; G0378 ×2